=== PATIENT | male | born 1935 | race Caucasian/White ===

== ENCOUNTER → 2016-07-09 | Day surgery (SDC) | payer OTHER, MEDICARE ==
[~2016-07-09] VITALS: Ht 172.7 cm; Wt 79.4 kg
[~2016-07-09] MED LIST: CRESTOR40 M2 PO; ELIQUIS5 M1 PO; FUROSEMIDE20 M1 PO; LOSARTAN POTAS100 M1 PO; NORVASC5 M1 PO; TOPROL XL100 M1 PO
--- NOTE | 2016-07-09 10:09 | Operative Report ---
Operative/Inv Procedure Report Surgery Date: 07/09/16 Name of Procedure: Cataract extraction lens implantation right eye Pre-Operative Diagnosis: Age-related cataract right eye 20/25 vision 20/200 glare vision Post-Operative Diagnosis: Same Estimated Blood Loss: none Surgeon/Leisure Travel Agent: KITTY PALAFOX,DARNELL Royal Anesthesia: local monitored anesthesi Complications: None Operative/Procedure Note Note: The patient was brought to the operating room standard monitoring equipment was attached the patient was prepped and draped in the usual fashion for intraocular surgery. A lid speculum was placed to retract the lids. The case was begun by making 2 partial-thickness corneal relaxing incisions at 7. A temporal incision with a 2.4 mm keratome. The eye was stabilized with a Rosario ring during this incision. 1 mL of non-preserved lidocaine was introduced into the anterior chamber to provide anesthesia. The anterior chamber was then filled and deepened with viscoelastic. A curvilinear capsulorrhexis was achieved using a 30-gauge needle and is a cystotome and capsulorrhexis was finished using a Utrata forceps. A second or paracentesis incision was made temporally with a 1 mm MVR blade. The lens was then hydrodissected with balanced salt solution and found to be rotatable. The lens was emulsified using phacoemulsification and a modified four-quadrant cracking technique. The residual cortical material was removed using automated irrigation and aspiration and as much of the anterior capsular rim was cleaned as well as possible. The posterior capsule was cleaned first with the automated machine on a low setting and then manually with a Hugh squeegee. The capsular bag was deepened with viscoelastic. The lens a Technis 1 18.0 diopter placed into the bag under direct visualization and rotated so that the haptics were at 12 and 6:00. Viscoelastic was then removed from the eye by flushing it out and then by automated irrigation and aspiration. The eye was pressurized to a normal tone. 1/10 of a cc of vancomycin solution was introduced into the anterior chamber to provide antibiotic prophylaxis. The wounds were sealed by hydrating the stroma adjacent to them and the eye was left at a proper tone after the wounds were checked and found not to be leaking. The lid speculum was removed from the orbit. Antibiotic and steroid drops were placed on the eye and then the eye was shielded. Monitoring equipment was removed from the patient and the patient was removed from the operative suite to the holding area. The patient tolerated the procedure well and will be seen in the office tomorrow.
== END ==
LOC: STS 03:02
DX: H25.9 Unspecified age-related cataract (principal); I10 Essential (primary) hypertension; Z85.09 Personal history of malignant neoplasm of other digestive organs; I25.2 Old myocardial infarction
CPT/HCPCS: J2250; V2632

== ENCOUNTER 2017-03-26 09:42 | Observation (INO) | payer OTHER ==
[~2017-03-26] VITALS: Ht 172.7 cm; Wt 72.6 kg
[~2017-03-26 09:42] MED LIST changes: +AMIODARONE HCL200 M1 PO; +COZAAR50 M1 PO; +FLOMAX0.4 M1 PO; -LOSARTAN POTAS100 M1 PO; +MIRTAZAPINE15 M2 PO; +NORVASC2.5 M1 PO; -NORVASC5 M1 PO; +TRAZODONE HCL50 M1 PO; +VIAGRA50 MG PO; +VITAMIN D31000 UNI1 PO
[2017-03-26 10:29] LABS: ABSOLUTE BASOPHIL COUNT 0 /CUMM (0.0-0.2); ABSOLUTE LYMPH COUNT 0.3 /CUMM (1.2-3.4); BASOPHIL % 0 % (0.0-2.0); WHITE BLOOD CELL COUNT 3.1 /CUMM (4.8-10.8)
[2017-03-26 10:38] LABS: PT 17.1 SEC (9.4-12.5); PTT 33 SEC (25-37)
[2017-03-26 10:56] LABS: ABSOLUTE EOSINOPHIL COUNT 0 /CUMM (0.0-0.7); ABSOLUTE GRANULOCYTE CT 1.9 /CUMM (1.4-6.5); ABSOLUTE MONOCYTE COUNT 0.8 /CUMM (0.10-0.60); EOSINOPHIL % 0.8 % (0-5); GRANULOCYTE % 61.5 % (42.2-75.2); HEMATOCRIT 23.4 % (42-52); MEAN CORPUSCULAR HGB 23.6 PG (27.0-31.0); MEAN CORPUSCULAR VOLUME 76.3 FL (80.0-94.0); MEAN PLATELET VOLUME 8.9 FL (7.4-10.4); PLATELET COUNT 127 /CUMM (130-400); RBC DISTRIBUTION WIDTH 17.2 % (11.5-14.5); RED BLOOD CELL CT 3.06 /CUMM (4.70-6.10)
--- NOTE | 2017-03-26 11:05 | ED GENERAL ADULT ---
History of Present Illness General Chief Complaint: General Adult Stated Complaint: SIB MD BREWER FOR INTERNAL BLEEDING Source: patient, old records, PCP Exam Limitations: no limitations Vital Signs & Intake/Output Vital Signs & Intake/Output Vital Signs Date Time Temp Pulse Resp B/P B/P Pulse O2 O2 Flow FiO2 Mean Ox Delivery Rate 03/26 1843 97.3 61 18 117/57 99 03/26 1628 98.1 63 18 114/56 99 03/26 1446 Room Air 03/26 1443 97.9 61 16 134/62 98 Room Air 03/26 1407 97.5 63 16 127/63 98 Room Air 03/26 1246 97.4 63 18 151/69 99 03/26 0957 96.5 80 18 121/60 93 Room Air Room Air Allergies Coded Allergies: Iodinated Contrast- Oral and IV Dye (HIVES 10/06/16) Uncoded Allergies: MRI DYE (11/01/12) Reconcile Medications Amiodarone (Cordarone) 200 MG TABLET 1 TAB PO DAILY HEART (Reported) Apixaban (Eliquis) 5 MG TABLET 1 TAB PO BID A FIB (Reported) Cholecalciferol (Vitamin D3) (Vitamin D3) 1,000 UNIT CAPSULE 2 CAP PO DAILY Vitamin supplementation (Reported) Duloxetine HCl 30 MG CAPSULE.DR 1 CAP PO DAILY MENTAL HEALTH (Reported) Furosemide 20 MG TABLET 1 TAB PO Q48 WATER RETENTION (Reported) Metoprolol Succ XL (Toprol XL) 100 MG TAB.ER.24H 1 TAB PO DAILY CAD (Reported ) Pantoprazole Sodium 40 MG TABLET.DR 1 TAB PO DAILY ACID REFLUX (Reported) Tamsulosin HCl (Flomax) 0.4 MG CAP.ER.24H 1 CAP PO DAILY Prostate (Reported) Trazodone HCl 50 MG TABLET 1 TAB PO QPM SLEEP (Reported) Triage Note: PT TO ED SENT IN BY DR BREWER FOR LOW HBG. PER PT, DENIES DARK OR BLOOD STOOLS OR N/V. "I GET DIZZY WHEN I FIRST GET UP AND I FEEL WEAK". Triage Nurses Notes Reviewed? yes Onset: Abrupt Duration: week(s): (2) Timing: recent history Injury Environment: home Severity: mild, moderate Modifying Factors: Worsens With: movement. Associated Symptoms: DYSPNEA HPI: 82 year old male presents to the ER for chief complaint of shortness of breath with exertion for the past 2 weeks. He reports one episode of black stool 2 weeks ago but none since then. He is on eliquis BID and started taking alleve once a day two weeks ago. No abdominal pain, nausea or vomiting. He denies any chest pain. Yesterday he saw Dr. Brewer and was called today with a low hemoglobin and told to go to the ER. He has had a previous colonoscopy [address] lomeli but no previous endoscopy. He reports feeling weak and dizzy in the morning when standing. (Marietta Yin MD) Past History Travel History Traveled to [place] past 21 day No Medical History Any Pertinent Medical History? 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 No (Marietta Yin MD) Review of Systems Review of Systems Constitutional: Reports: weakness. Denies: chills, fever. EENTM: Reports: no symptoms. Respiratory: Reports: short of breath. Denies: cough, orthopnea, sputum production. Cardiovascular: Denies: chest pain, palpitations. GI: Reports: melena ((2 WEEKS AGO)). Denies: abdominal pain. Genitourinary: Denies: discharge, dysuria, frequency, hematuria. Musculoskeletal: Denies: back pain. Skin: Reports: no symptoms. Neurological/Psychological: Reports: no symptoms. Hematologic/Endocrine: Reports: bleeding. Denies: bruising, polyuria, polydipsia. Immunologic/Allergic: Denies: splenectomy. All Other Systems: Reviewed and Negative (Marietta Yin MD) Physical Exam Physical Exam General Appearance: well developed/nourished, alert, awake, mild distress Head: atraumatic, normal appearance Eyes: Bilateral: normal appearance, PERRL, EOMI. Ears, Nose, Throat: normal pharynx, normal ENT inspection, hearing grossly normal Neck: normal inspection, supple, full range of motion Respiratory: normal breath sounds, chest non-tender, no respiratory distress Cardiovascular: regular rate/rhythm Peripheral Pulses: 2+ radial (R), 2+ radial (L) Gastrointestinal: normal bowel sounds, soft, non-tender Rectal: BROWN OB NEGATIVE Back: normal inspection, normal range of motion, vertebral tenderness Extremities: normal inspection, normal capillary refill, normal range of motion, no edema Neurologic/Psych: no motor/sensory deficits, awake, alert, oriented x 3 Skin: intact, normal color, warm/dry Core Measures ACS in differential dx? No CVA/TIA Diagnosis: No Sepsis Present: No Sepsis Focused Exam Completed? No (Annamaria PALAFOX,Marietta) Progress Differential Diagnoses I considered the following diagnoses in my evaluation of the patient: [GI BLEED, SYMPTOMATIC ANEMIA, PEPTIC ULCER, GERD, ] Plan of Care: Orders Procedure Date/time Status Heart Healthy Diet 03/26 D Active BLOOD PRODUCT PICKUP 03/26 1652 Active Intake & Output 03/[address] in observation 03/26 1423 Active ED Holding Orders 03/26 1423 Active Patient Data 03/26 1423 Active Vital Signs 03/26 1423 Active Code Status 03/26 1423 Active BLOOD PRODUCT PICKUP 03/26 1317 Active LEUKOCYTE POOR (PACKED CELLS) 03/26 1214 Active Add-on Test (ER Only) 03/26 1140 Active EKG 03/26 1121 Active MISTAKE 03/26 1120 Active TROPONIN LEVEL 03/26 1010 Complete PARTIAL THROMBOPLASTIN TIME 03/26 1003 Complete PROTHROMBIN TIME 03/26 1003 Complete COMPREHENSIVE METABOLIC PANEL 03/26 1003 Complete CBC WITHOUT DIFFERENTIAL 03/26 1003 Complete TYPE & SCREEN (NOT X-MATCH) 03/26 1003 Active Laboratory Tests 03/26/17 1010: Anion Gap 13, Estimated GFR 48 L, BUN/Creatinine Ratio 17.9, Glucose 105 H, Calcium 8.6, Total Bilirubin 0.7, AST 19, ALT 41, Alkaline Phosphatase 43, Troponin I 0.01, Total Protein 5.9 L, Albumin 3.8, Globulin 2.1, Albumin/ Globulin Ratio 1.8, PT 17.1 H, INR 1.64 H, APTT 33, CBC w Diff MAN DIFF ORDERED, RBC 3.06 L, MCV 76.3 L, MCH 23.6 L, RDW 17.2 H, MPV 8.9, Gran % 61.5, Lymphocytes % 11.1 L, Monocytes % 26.6 H, Eosinophils % 0.8, Basophils % 0, Absolute Granulocytes 1.9, Segmented Neutrophils 51, Band Neutrophils 4, Absolute Lymphocytes 0.3 L, Lymphocytes 15 L, Monocytes 24 H, Absolute Monocytes 0.8 H, Eosinophils 4, Absolute Eosinophils 0, Basophils 2, Absolute Basophils 0, Platelet Estimate DECREASED, Polychromasia 2+, Hypochromic- Microcytic 3+, Anisocytosis 1+, Microcytic Cells 1+, PUBS MCHC 31.0 L Initial ED EKG: pacemaker rhythm Prior EKG: unchanged Hand-Off Endorsed To: Nadeem Carmona MD Endorsed Time: 1913 Pending: other (TRANSFUSION (2ND)) (Marietta Yin MD) Departure Departure Condition: Stable Clinical Impression Primary Impression: Symptomatic anemia Referrals: Solitario PALAFOX,Flakito (PCP/Family) Anthony PALAFOX,Qamar Fontenot Additional Instructions: CLEAR LIQUID DIET TOMORROW ALL DAY AND DO NOT EAT OR DRINK ANYTHING AFTER MIDNIGHT TOMORROW NIGHT GO TO THE GI SUITE TOMORROW AT 11:30 FOR YOUR ENDOSCOPY RETURN FOR ANY CHANGING OR WORSENING SYMPTOMS Departure Forms: Customer Survey General Discharge Information (Marietta Yin MD) Departure Time of Disposition: 1951 Disposition: HOME OR SELF CARE (Nadeem Carmona MD) Critical Care Note Critical Care Note Critical Care Time: 75-104 min (Marietta Yin MD) ED Attending Observation Initial Observation Note: I have seen and personally examined JASPAL SAMUEL on 03/26/17 at 1423. I agree with the current emergency department documentation. The disposition (admission or discharge) is uncertain at this time, he needs a period of observation for the following reason(s): [WILL TRANSFUSE 2 UNITS PACKED RBC, H/O CAD WILL MONITOR FOR FLUID OVERLOAD, VITAL SIGNS, TRANSFUSION REACTION, GI CONSULTATION WHILE IN THE ED] The ED Nurse caring for this patient has been personally informed as to what the patient is being observed for. Observation Re-Evaluation: I have reevaluated JASPAL SAMUEL on 03/26/17 at 1730. The physical findings that support the continued need to observe this patient include [GETTING TRANSFUSED, TOLERATING WELL, SEEN BY DR MARTIN IN THE ED, WILL SCOPE OUTPATIENT ON FRIDAY]. (Annamaria PALAFOX,Marietta) Observation Discharge: I have reevaluated JIMMIEJASPAL on 03/26/17 at 1951. The patient is: (X): Stable for discharge (): To be admitted to Nursing Floor (): To be placed in Observation on Nursing Floor (): For transfer to other facility The patient was being observed for symptomatic anemia As a result of that observation, I have determined safe for discharge and outpatient follow up. (Kristine PALAFOX,Nadeem)
[2017-03-26] MEDS ORDERED: DULOXETINE HCL30 MG PO (11:57)
[2017-03-26] MEDS ORDERED: FUROSEMIDE20 M1 PO (11:57)
[2017-03-26] MEDS ORDERED: PANTOPRAZOLE SO40 M1 PO (11:58)
--- NOTE | 2017-03-26 15:47 | Cons- Gastroenterology ---
General Information and HPI Consulting Request Date of Consult: 03/26/17 Requested By: ALINE PALAFOX,MARIETTA Reason for Consult: I was called a short while ago by Dr. Yin, of the [facility], on behalf of Dr. Jerez, to assess anemia in a patient with presumed GI bleeding (currently brown stool, OB-neg). The patient is being seen in GI coverage for Dr. Jonathan Hernández. 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 The patient was not on aspirin. He started taking Aleve 3 weeks ago, on a daily basis (previously on Tylenol), for DJD & chronic low back pain. He has a history of falls. He has a history of colon adenomas & history of GERD. He was on outpatient PPI (Portonix 40 mg daily). He has been transfused in the past. He was last admitted to [facility] 10/06/16-10/11/16, for falls, renal insufficiency, thrombocytopenia, & rhabdomyolysis. There also has been intermittent pancytopenia, & at the time of discharge, there was suggestion for outpatient hematology consultation. 02/13/16: Combined colonoscopy to cecum/EGD to D2 per Dr. Bhatti- Total of 5 subcm colon polyps removed- all benign TA, with random colon biopsies negative for colitis, large internal hemorrhoids, no colitis, diverticulosis coli. No gross esophagitis seen, GE junction at 41 cm, hiatal hernia, Z line at 39.5 cm, esophageal biopsies at 40 cm- mixed esophageal and glandular mucosa with focal IM and mild chronic inflammation, no dysplasia (? if SSBE). The patient noted generalized weakness, fatigue, and HORN x few weeks, without any CP, SOB at rest, or palpitations. He reportedly had a dark stool 3 weeks ago, without recurrence, as he had started Aleve then, in addition to his Eliquis. He saw his PMD for these symptoms 03/25/17 & had labs done, showing worsening anemia and a rising BUN, and he was sent to the [facility] for further evaluation. He had brown stool, OB negative in the ER. His reflux was stable on Protonix. He denied any odynophagia, dysphagia, nausea, vomiting, hematemesis, recurrent dark stool, or abdominal pain. He had some mild early satiety. He denied any diarrhea, constipation, obstipation, tenesmus, or overt rectal bleeding. He claimed he lost 10-15 pounds over the past year, which was a chronic issue. His appetite was fair. He denied any risks, chills, or jaundice. The patient denied any family history of GI CA, GI disease, or inherited liver disease. Upon arrival to the ER, where he arrived 03/26/17 at 9:42 a.m., BP 121/60, P 80, R 18, T 96.5, O2 sat RA 93% He was later the opposite of orthostatic by BP, but was orthostatic by pulse. 10/07/16: Fe 64, TIBC 296, Fe sat 21.6%, ferritin 127, B12 > 1000. 10/26/16: WBC 3.0, H/H 9.5/28.2, MCV 91.9. RDW 15.7, PLT 164, BUN/Cr 11/1.3, GFR 53, Na 138, K 4.4, HCO3 28, Ca 8.7. 03/26/17: WBC 3.1 (51S/4B/15L/24M/4E/2Baso), H/H 7.2/23.4, MCV 76.3, RDW 17.2, PLT 127, PT 17.1, INR 1.64 (? utility on Eliquis), PTT 30, glucose 105, BUN/Cr 25/1.4, GFR 48, Na 141, K 4.4, HCO3 26, AG 13, Ca 8.6, albumin 3.8, globulin 2.1 , TBil 0.7, alk phos 43, AST 19, ALT 41, troponin 0.01. 03/26/17: EKG- A. fib/flutter @ 70 with ventricular paced rhythm, PRWP without change. Allergies/Medications Allergies: Coded Allergies: Iodinated Contrast- Oral and IV Dye (HIVES 10/06/16) Uncoded Allergies: MRI DYE (11/01/12) Home Med List: Amiodarone (Cordarone) 200 MG TABLET 1 TAB PO DAILY HEART (Reported) Apixaban (Eliquis) 5 MG TABLET 1 TAB PO BID A FIB (Reported) Cholecalciferol (Vitamin D3) (Vitamin D3) 1,000 UNIT CAPSULE 2 CAP PO DAILY Vitamin supplementation (Reported) Duloxetine HCl 30 MG CAPSULE.DR 1 CAP PO DAILY MENTAL HEALTH (Reported) Furosemide 20 MG TABLET 1 TAB PO Q48 WATER RETENTION (Reported) Metoprolol Succ XL (Toprol XL) 100 MG TAB.ER.24H 1 TAB PO DAILY CAD (Reported ) Pantoprazole Sodium 40 MG TABLET.DR 1 TAB PO DAILY ACID REFLUX (Reported) Tamsulosin HCl (Flomax) 0.4 MG CAP.ER.24H 1 CAP PO DAILY Prostate (Reported) Trazodone HCl 50 MG TABLET 1 TAB PO QPM SLEEP (Reported) Current Medications: (not admitted) Past History Travel History Traveled to [place] past 21 day No Medical History Blood Transfusion Hx: Yes Neurological: NONE 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 Cardiovascular: AFIB, cardiomyopathy, hypertension, myocardial infarction, AICD Respiratory: obstructive sleep apnea Gastrointestinal: GERD, hiatal hernia, hx colon adenoma, diverticulosis coli Hepatic: NONE Renal: chronic kidney disease Musculoskeletal: LUMBAR STENOSIS ARTHRITIS C-SPINE FUSION Psychiatric: depression, insomnia Endocrine: NONE Blood Disorders: pancytopenia Cancer(s): 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 MOTHER, ; Cause: ASHD (arteriosclerotic heart disease). Psychosocial History Where Do You Live? Home (Lives with dtr) Who Do You Live With? child (dtr) Services at Home: None Primary Language: Bermudian Smoking Status: Former Smoker ETOH Use: denies use Illicit Drug Use: denies illicit drug use Living Will? yes Power of Assembler Production Line/HCP? yes Name of POA/HCP: kmr- Fay Mancuso- [phone] Other Social History: . 4 children (2 sons & 2 dtrs)- [employer]. Lives with dtr. Ex-20 pk yr cigarette smoker, D/C mid- . No EtOH or illicit drugs. 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 Functional Ability ADLs Independent: dressing, eating, toileting, bathing. Ambulation: independent IADLs Independent: shopping, housework, finances, food prep, telephone, transportation , medication admin. 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 Denies: chills, diaphoresis, fever, malaise. EENTM: Denies: blurred vision, double vision, visual changes, eye pain, eye drainage, eye tearing, icterus, ear discharge, ear pain, ear redness, hearing changes, nasal congestion, epistaxis, nasal pain, throat pain, throat swelling, mouth pain, tooth pain. Cardiovascular: Denies: edema, orthopena, palpitations, peripheral edema, syncope. Respiratory: Reports: short of breath (HORN, no SOB at rest). Denies: cough, hemoptysis, orthopnea, sputum production, stridor, wheezing. GI: Reports: melena (1 episode dark stool 3 wks ago). Denies: abdominal pain, bloating, constipation, diarrhea, distention, bowel incontinence, nausea, bloody stool, changes in stool, vomiting, steatorrhea. Genitourinary: Reports: frequency (BPH), nocturia, urgency. Denies: discharge, dysuria, hematuria, hesitation, pain. Musculoskeletal: Reports: back pain (chronic), joint pain (DJD). Denies: gout, joint swelling, muscle pain, muscle stiffness, neck pain. Skin: Denies: cysts, change in skin color, change in hair/nails, dryness, erythema, jaundice, lesions, lymphangitis, lumps, moles, rash. Neurological/Psychological: Reports: depressed, emotional problems. Denies: anxiety, ataxia, cognitive dysfunction, confusion, dementia, headache, numbness, paresthesia, pre-existing deficit, petit mal seizures, tingling, tremors, tonic-clonic seizures, unable to move lower ext, unable to move upper ext, weakness. Hematologic/Endocrine: Denies: see HPI, bleeding, polyuria, polydipsia. Immunologic/Allergic: Denies: splenectomy, HIV/AIDS, lymphadenopathy. All Other Systems: Reviewed and Negative Exam & Diagnostic Data Vital Signs and I&O Vital Signs Date Time Temp Pulse Resp B/P B/P Pulse O2 O2 Flow FiO2 Mean Ox Delivery Rate 03/26 1446 Room Air 03/26 1443 97.9 61 16 134/62 98 Room Air 03/26 1407 97.5 63 16 127/63 98 Room Air 03/26 1246 97.4 63 18 151/69 99 03/26 0957 96.5 80 18 121/60 93 Room Air Room Air Intake & Output 03/26 1600 03/26 0400 03/25 1600 03/25 0400 03/24 1600 03/24 040 Intake Total Output Total Balance Patient 160 lb Weight Weight Reported by Patient Measurement Method Physical Exam: Well-developed, well-nourished, pleasant elderly male, in no apparent distress. Sclera anicteric. Conjunctiva pink. Oropharynx clear. No oral thrush. No aphthous ulcers There is no adenopathy, thyromegaly, or JVD. No peripheral stigmata of inflammatory bowel disease or chronic liver disease on exam. No spiders on the anterior chest wall. No gynecomastia. No CVA tenderness. Lungs: clear to A&P. No wheezing, rales, or rhonchi. Heart exam: irregularly irregular rate rhythm, S1 and S2, with I/ sytolic murmur. Midline scar chest, post AICD replacement (currently in right chest wall). Abdominal exam: normal bowel sounds , soft belly, nontender, without guarding or rebound. No mass. No organomegaly. No fluid shift. No pulsatile mass. No epigastric bruit. Digital rectal exam in ER per Dr. Yin: brown stool, OB negative. Extremities: without C, C, or E. No palpable cords. No DJD. Distal pulses 1+ bilaterally. DTRs 2+ bilaterally. Alert and oriented x 3. No tremor. No asterixis. Results Pertinent Lab Results: Laboratory Tests 03/26 1010 Chemistry Sodium (137 - 145 mmol/L) 141 Potassium (3.5 - 5.1 mmol/L) 4.4 Chloride (98 - 107 mmol/L) 102 Carbon Dioxide (22 - 30 mmol/L) 26 Anion Gap (5 - 16) 13 BUN (9 - 20 mg/dL) 25 H Creatinine (0.7 - 1.2 mg/dL) 1.4 H Estimated GFR (>60 ml/min) 48 L BUN/Creatinine Ratio (7 - 25 %) 17.9 Glucose (65 - 99 mg/dL) 105 H Calcium (8.4 - 10.2 mg/dL) 8.6 Total Bilirubin (0.2 - 1.3 mg/dL) 0.7 AST (17 - 59 U/L) 19 ALT (21 - 72 U/L) 41 Alkaline Phosphatase (< 127 U/L) 43 Troponin I (<0.11 ng/ml) 0.01 Total Protein (6.3 - 8.2 g/dL) 5.9 L Albumin (3.5 - 5.0 g/dL) 3.8 Globulin (1.9 - 4.2 gm/dL) 2.1 Albumin/Globulin Ratio (1.1 - 2.2 %) 1.8 Coagulation PT (9.4 - 12.5 SEC) 17.1 H INR (0.90 - 1.17) 1.64 H APTT (25 - 37 SEC) 33 Hematology CBC w Diff MAN DIFF ORDERED WBC (4.8 - 10.8 /CUMM) 3.1 L RBC (4.70 - 6.10 /CUMM) 3.06 L Hgb (14.0 - 18.0 G/DL) 7.2 *L Hct (42 - 52 %) 23.4 L MCV (80.0 - 94.0 FL) 76.3 L MCH (27.0 - 31.0 PG) 23.6 L RDW (11.5 - 14.5 %) 17.2 H Plt Count (130 - 400 /CUMM) 127 L MPV (7.4 - 10.4 FL) 8.9 Gran % (42.2 - 75.2 %) 61.5 Lymphocytes % (20.5 - 51.1 %) 11.1 L Monocytes % (1.7 - 9.3 %) 26.6 H Eosinophils % (0 - 5 %) 0.8 Basophils % (0.0 - 2.0 %) 0 Absolute Granulocytes (1.4 - 6.5 /CUMM) 1.9 Segmented Neutrophils (42.2 - 75.2 %) 51 Band Neutrophils (0.0 - 5.0 %) 4 Absolute Lymphocytes (1.2 - 3.4 /CUMM) 0.3 L Lymphocytes (20.5 - 51.1 %) 15 L Monocytes (1.7 - 9.3 %) 24 H Absolute Monocytes (0.10 - 0.60 /CUMM) 0.8 H Eosinophils (0 - 5.0 %) 4 Absolute Eosinophils (0.0 - 0.7 /CUMM) 0 Basophils (0.0 - 2.0 %) 2 Absolute Basophils (0.0 - 0.2 /CUMM) 0 Platelet Estimate (ADEQUATE) DECREASED Polychromasia 2+ Hypochromic-Microcytic 3+ Anisocytosis 1+ Microcytic Cells 1+ PUBS MCHC (33.0 - 37.0 G/DL) 31.0 L Imaging/Other Studies: 03/26/17: EKG- A. fib/flutter @ 70 with ventricular paced rhythm, PRWP without change. 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 The patient was not on aspirin. He started taking Aleve 3 weeks ago, on a daily basis (previously on Tylenol), for DJD & chronic low back pain. He has a history of falls. He has a history of colon adenomas & history of GERD. He was on outpatient PPI (Portonix 40 mg daily). He has been transfused in the past. He was last admitted to [facility] 10/06/16-10/11/16, for falls, renal insufficiency, thrombocytopenia, & rhabdomyolysis. There also has been intermittent pancytopenia, & at the time of discharge, there was suggestion for outpatient hematology consultation. 02/13/16: Combined colonoscopy to cecum/EGD to D2 per Dr. Bhatti- Total of 5 subcm colon polyps removed- all benign TA, with random colon biopsies negative for colitis, large internal hemorrhoids, no colitis, diverticulosis coli. No gross esophagitis seen, GE junction at 41 cm, hiatal hernia, Z line at 39.5 cm, esophageal biopsies at 40 cm- mixed esophageal and glandular mucosa with focal IM and mild chronic inflammation, no dysplasia (? if SSBE). The patient noted generalized weakness, fatigue, and HORN x few weeks, without any CP, SOB at rest, or palpitations. He reportedly had a dark stool 3 weeks ago, without recurrence, as he had started Aleve then, in addition to his Eliquis. He saw his PMD for these symptoms 03/25/17 & had labs done, showing worsening anemia and a rising BUN, and he was sent to the [facility] for further evaluation. He had brown stool, OB negative in the ER. His reflux was stable on Protonix. He denied any odynophagia, dysphagia, nausea, vomiting, hematemesis, recurrent dark stool, or abdominal pain. He had some mild early satiety. He denied any diarrhea, constipation, obstipation, tenesmus, or overt rectal bleeding. He claimed he lost 10-15 pounds over the past year, which was a chronic issue. His appetite was fair. He denied any risks, chills, or jaundice. The patient denied any family history of GI CA, GI disease, or inherited liver disease. Upon arrival to the ER, where he arrived 03/26/17 at 9:42 a.m., BP 121/60, P 80, R 18, T 96.5, O2 sat RA 93% He was later the opposite of orthostatic by BP, but was orthostatic by pulse. 10/07/16: Fe 64, TIBC 296, Fe sat 21.6%, ferritin 127, B12 > 1000. 10/26/16: WBC 3.0, H/H 9.5/28.2, MCV 91.9. RDW 15.7, PLT 164, BUN/Cr 11/1.3, GFR 53, Na 138, K 4.4, HCO3 28, Ca 8.7. 03/26/17: WBC 3.1 (51S/4B/15L/24M/4E/2Baso), H/H 7.2/23.4, MCV 76.3, RDW 17.2, PLT 127, PT 17.1, INR 1.64 (? utility on Eliquis), PTT 30, glucose 105, BUN/Cr 25/1.4, GFR 48, Na 141, K 4.4, HCO3 26, AG 13, Ca 8.6, albumin 3.8, globulin 2.1 , TBil 0.7, alk phos 43, AST 19, ALT 41, troponin 0.01. 03/26/17: EKG- A. fib/flutter @ 70 with ventricular paced rhythm, PRWP without change. *The patient had a dark bowel movement 3 weeks ago. He currently had brown, OB- negative stool. He had subacute on chronic anemia in the setting of intermittent pancytopenia, with a mild rise in his BUN. He was hemodynamically stable. Eliquis was on board, last taken this morning, 03/26/17. He was also on Aleve. The patient had CKD, and therefore, it should take longer than a day for the Eliquis to wear off. The relatively recent 02/12: combined colonoscopy/EGD are as above. The patient's reflux symptoms were stable on Protonix 40 mg daily. He did note some mild early satiety and somewhat chronic weight loss. Most likely, the patient had a slow upper GI bleed. I previously had a long discussion with Dr. Yin, of the [facility], who spoke to the patient's PMD, Dr. Jerez. I also spoke with the patient, who preferred to go home after transfusion, if possible, for outpatient GI workup, once the Eliquis wore off. *SUGGEST- *Slowly transfuse to Hgb > 8, then to be sent home, per discussion with ER. * Increase Protonix to 40 mg po BID, 1/2 hour before breakfast & supper. *No NSAIDS. *Hold Eliquis for now. The patient has our office number. *He has been set up for an outpatient EGD on 03/28/17, at noon, with Dr. Bone, as Dr. Saira Hernández is on vacation, & I am in the office all day that day. The risks and benefits of EGD were discussed with the patient, & he wished to proceed. *He was told to take clears po after being sent home from the ER (in case he actively bled), then be NPO after 11:59 p.m. on , 03/27/17 for EGD the following day. He was told to call Vandana at my office for further instructions, if needed. *The patient was obviously told to call our office [facility] if he developed signs of active bleeding prior to the EGD. Will defer to PMD for potential hematology input regarding chronic pancytopenia (there is no history of cirrhosis). *A decision regarding resumption of A/C therapy will be made after the EGD is done. *Further outpatient workup of early satiety and/or weight loss to be dependent on EGD results (possible CT abdomen [contrast allergy] and/or gastric scintiscan, etc.). Otherwise, he should follow up with Dr. Jonathan Hernández for his other GI issues, although by dates, he appears to be too old for routine colon polyp surveillance. Problem List: 1. Anemia 2. Pancytopenia 3. GERD (gastroesophageal reflux disease) 4. Early satiety 5. Weight loss 6. Hiatal hernia 7. History of adenomatous polyp of colon 8. Diverticulosis of colon Copies To: Solitario PALAFOX,Flakito; Aline PALAFOX,Marietta; Jaskaran PALAFOX PHD,Suri Haley; Willy PALAFOX ,Vipin Amos; Edgar PALAFOX,Leonardo Bowie. Consult Acknowledgment - Thank you for your consult request.
[2017-03-26 20:00] VITALS: BP 142/65
== END 2017-03-26 20:00 ==
LOC: ERH 09:42 → ERHI 14:23 → ENRESERV 19:12 → ERHI 20:00
PROVIDERS: Emergency Medicine
DX: D64.9 Anemia, unspecified (principal); R06.02 Shortness of breath; G47.33 Obstructive sleep apnea (adult) (pediatric); Z85.89 Personal history of malignant neoplasm of other organs and systems; I48.91 Unspecified atrial fibrillation; I42.9 Cardiomyopathy, unspecified; I10 Essential (primary) hypertension; I25.2 Old myocardial infarction; M48.061 Spinal stenosis, lumbar region without neurogenic claudication; F32.9 Major depressive disorder, single episode, unspecified; G47.00 Insomnia, unspecified; Z95.810 Presence of automatic (implantable) cardiac defibrillator
CPT/HCPCS: 86920; 93005; 93010; 99291; G0378; P9016